=== PATIENT | female | born 1965 | race Caucasian/White ===

== ENCOUNTER 2020-04-06 17:19 | Emergency (ER) | payer OTHER, SELFPAY ==
[~2020-04-06 17:19] MED LIST: ALENDRONATE SOD70 MG PO; ANASTROZOLE1 M1 PO; ATENOLOL25 M1 PO; HCTZ25 MG PO; PERCOCET 5-3251 EACH PO; PREDNISONE 20MG20 MG PO; PROAIR HFA8.5 GM INH; VENTOLIN HFA IN18 GM INH; VOLTAREN **OUT75 MG PO
[2020-04-06] MEDS ORDERED: MEDROL 4MG DOSEP4 MG PO (18:04)
== END 2020-04-06 18:20 | disposition home or self-care (01) ==
LOC: FER 17:19
DX: S86.912A Strain of unspecified muscle(s) and tendon(s) at lower leg level, left leg, initial encounter (principal); S86.911A Strain of unspecified muscle(s) and tendon(s) at lower leg level, right leg, initial encounter; I10 Essential (primary) hypertension; Z85.3 Personal history of malignant neoplasm of breast; W19.XXXA Unspecified fall, initial encounter; Y92.009 Unspecified place in unspecified non-institutional (private) residence as the place of occurrence of the external cause
CPT/HCPCS: 96372; 99283; J1100; J1885